=== PATIENT | male | born 1960 | race Hispanic/Latino ===

== ENCOUNTER 2017-02-21 20:48 | Observation (INO) | payer SELFPAY ==
[~2017-02-21] VITALS: Ht 175.3 cm; Wt 96.8 kg
[~2017-02-21 20:48] MED LIST: ASPIRIN EC325 MG PO; CIPRO500 MG PO; FLOXIN OTIC OT; KEFLEX500 M1 PO; LORTAB 5 OR; MEDI; PERCOCET 10/31 COMBO PO; POOR HISTORIAN; WALKER; WHEELCHAIR; ZOFRAN ODT8 MG SL; [UNRECOGNIZED DRUG - OTHER]; [UNRECOGNIZED DRUG - OTHER]
[2017-02-21 21:28] LABS: HEMATOCRIT 46.3 % (39.0-50.0); HEMOGLOBIN 15.6 g/dl (14.0-18.0); IMMATURE GRANULOCYTES 0.1 % (0.0-1.0); MEAN CELL VOLUME 85.6 fL CALC (80.0-100.0); MEAN CORPUSCULAR HGB 28.8 pG CALC (26.0-32.0); MEAN CORPUSCULAR HGB CONC 33.7 g/L CALC (32.0-36.0); NEUT# 3.5 thou/uL (1.82-7.42); RED BLOOD COUNT 5.41 mill/uL (4.70-6.10); RED CELL DISTRI WIDTH 12.8 % (11.5-15.5)
[2017-02-21 21:48] LABS: ACT PARTIAL THROMBO TIME 24.5 SECONDS (20.0-32.5); PROTHROMBIN TIME 10.3 SECONDS (9.0-12.5)
[2017-02-21 22:01] LABS: ALBUMIN 4.3 g/dL (3.2-5.0); ALKALINE PHOSPHATASE 74 u/l (38-126); AMYLASE 45 u/l (30-110); ANION GAP 16 (6-22 (CALC)); BUN 21 mg/dL (9-20); BUN/CREATININE RATIO 13 (12-20 (CALC)); CALCIUM 9.7 mg/dL (8.4-10.2); CARBON DIOXIDE 25 mmol/l (22-30); CHLORIDE 108 mmol/l (95-108); CREATININE 1.6 mg/dL (0.7-1.3); GFR 45 ML/MIN (>=60 (CALC)); GFR FOR AFR.AMER. 55 ML/MIN (>=60 (CALC)); GLUCOSE 89 mg/dL (75-110); LIPASE 335 u/l (23-300); POTASSIUM 4.4 mmol/l (3.5-5.1); SGOT/AST 48 u/l (17-59); SGPT/ALT 58 u/l (21-72); SODIUM 144 mmol/l (137-146); TOTAL PROTEIN 7.6 g/dL (6.3-8.2)
[2017-02-21 22:11] LABS: MYOGLOBIN 47 ng/mL (0 - 121)
[2017-02-22 01:30] VITALS: BP 105/65
[2017-02-22 04:20] VITALS: BP 103/68
[2017-02-22 06:13] LABS: ANION GAP 14 (6-22 (CALC)); BUN 19 mg/dL (9-20); BUN/CREATININE RATIO 16 (12-20 (CALC)); CALCIUM 9.3 mg/dL (8.4-10.2); CALCULATED LDLCHOLESTEROL 105 mg/dL (62-129 (CALC)); CARBON DIOXIDE 24 mmol/l (22-30); CHLORIDE 109 mmol/l (95-108); CREATININE 1.1 mg/dL (0.7-1.3); GFR > 60 ML/MIN (>=60 (CALC)); GFR FOR AFR.AMER. > 60 ML/MIN (>=60 (CALC)); GLUCOSE 80 mg/dL (75-110); HDL CHOLESTEROL 28 mg/dL (>=40); POTASSIUM 4.1 mmol/l (3.5-5.1); SODIUM 142 mmol/l (137-146); TOTAL CHOLESTEROL 148 mg/dl (0-199); TOTAL TRIGLYCERIDES 73 mg/dl (30-149); VLDL CHOLESTROL 15 mg/dl (8-62 (CALC))
[2017-02-22 08:33] VITALS: BP 110/67
[2017-02-22 12:07] VITALS: BP 110/68
[2017-02-22] MEDS ORDERED: CARAFATE1 GM PO (12:52)
[2017-02-22] MEDS ORDERED: PROTONIX40 M2 PO (12:52)
== END 2017-02-22 15:00 | disposition home or self-care (01) | DRG 313 ==
LOC: ENPENDDIS → ED 20:48 → ED-I 23:35 → ED 02-22 00:46 → MS2 02-22 00:47
PROVIDERS: Emergency Medicine; ADMIT Internal Medicine; ATTEND Internal Medicine
DX: R07.89 Other chest pain (principal); N17.9 Acute kidney failure, unspecified; R10.13 Epigastric pain
CPT/HCPCS: G0378

== ENCOUNTER 2018-08-26 06:51 | Observation (INO) | payer SELFPAY ==
[~2018-08-26] VITALS: Ht 175.3 cm; Wt 93.6 kg
[~2018-08-26 06:51] MED LIST changes: +CARAFATE1 GM PO; +PROTONIX40 M2 PO
--- NOTE | 2018-08-26 06:59 | NUR ---
PATIENT TO ROOM VIA WHEELCHAIR AND PHYSICIAN NOTIFIED OF PATIENTSTATUS
[2018-08-26 07:34] LABS: HEMATOCRIT 47.3 % (39.0-50.0); HEMOGLOBIN 16.5 g/dl (14.0-18.0); IMMATURE GRANULOCYTES 0.5 % (0.0-5.0); MEAN CELL VOLUME 84.9 fL CALC (80.0-100.0); MEAN CORPUSCULAR HGB 29.6 pG CALC (26.0-32.0); MEAN CORPUSCULAR HGB CONC 34.9 g/L CALC (32.0-36.0); NEUT# 4.88 thou/uL (1.82-7.42); RED BLOOD COUNT 5.57 mill/uL (4.70-6.10); RED CELL DISTRI WIDTH 12.5 % (11.5-15.5)
[2018-08-26 07:41] LABS: ALBUMIN 4.5 g/dL (3.2-5.0); ALKALINE PHOSPHATASE 82 u/l (38-126); ANION GAP 14 (6-22 (CALC)); BILIRUBIN, TOTAL 1.1 mg/dL (0.0-1.4); BUN 15 mg/dL (9-20); BUN/CREATININE RATIO 13 (12-20 (CALC)); CARBON DIOXIDE 26 mmol/l (22-30); CHLORIDE 105 mmol/l (95-108); CREATININE 1.2 mg/dL (0.7-1.3); ETHYL ALCOHOL 0 mg/dl (0-30); GFR > 60 ML/MIN (>=60 (CALC)); GFR FOR AFR.AMER. > 60 ML/MIN (>=60 (CALC)); LIPASE 245 u/l (23-300); SGOT/AST 24 u/l (17-59); SODIUM 141 mmol/l (137-146); TOTAL PROTEIN 7.8 g/dL (6.3-8.2)
--- NOTE | 2018-08-26 07:50 | NUR ---
PATIENT MEDICATED PER MD ORDER. PATIENT STATES CHEST PAIN 4 TO 5 AFTER MEDICATION ADMINSTRATION
[2018-08-26 08:30] LABS: BARBITURATES NEGATIVE (NEGATIVE); COCAINE NEGATIVE (NEGATIVE); METHADONE NEGATIVE (NEGATIVE); OXCYCODONE NEGATIVE (NEGATIVE); TETRAHYDROCANNABIONOL NEGATIVE (NEGATIVE); TRICYLIC ANTIDEPRESSANTS NEGATIVE (NEGATIVE)
--- NOTE | 2018-08-26 08:30 | NUR ---
PATIENT RESTING AWAITNG LAB RESULTS PATIENT STAtes pain 3 on 0-10 scale
--- NOTE | 2018-08-26 09:14 | NUR ---
PATIENT RESTING AWAITING LAB RESULTS PAIN 3 ON 0-10 SCALE
[2018-08-26] MEDS ORDERED: TORADOL PO (09:32)
[2018-08-26] MEDS ORDERED: PROTONIX40 M2 PO (09:32)
--- NOTE | 2018-08-26 10:01 | NUR ---
PATIENT STATES INCREASED LEFT SIDED CHEST PAIN WHEN ENTERING ROOM TO DISCHARGE PATIENT. MD MADE AWARE AND REPEAT EKG COMPLETED
--- NOTE | 2018-08-26 10:32 | NUR ---
REPORT CALLED TO MED SURG AWAITING ADMISSION ORDERS FOR TRANSPORT
--- NOTE | 2018-08-26 10:50 | NUR ---
PATIENT TRANSPORTED TO [facility]
[2018-08-26 11:00] VITALS: BP 138/83
--- NOTE | 2018-08-26 11:00 | NUR ---
PT ARRIVED TO MS2 VIA STRETCHER @ 1100 ACCOMPANIED BY RN. PT STOOD FOR WEIGHT AND THEN PLACED IN BED. VSS. FAMILY AT BEDSIDE. DISCUSED POC, PT IS DOMINICAN SPEAKING ONLY. DURING ADMISSION ASSESSMENT PT IN POSITION IN BED C/O SEVERE PAIN TO RUQ, NOT CHEST PAIN. NOTIFIED MD OF PAIN. AT BEDSIDE ABLE TO ANSWER MOST QUESTIONS FOR , DUE TO PT IN PAIN HE DOES NOT MAKE EYE CONTACT HIS EYES REMAIN CLOSED, HE KEEPS HIS ANSWERS SHORT AND SOMEWHAT DELAYED IN ANSWERING. AWAITING ORDERS FROM MD. PT MEDICATED WITH PROTONIX, DISCUSSED MEDICATION AND ADMINISTRATION. ADMISSION ASSESSMENT COMPLETED. CALL LIGHT IN REACH,CONTINUE TO MONITOR.
--- NOTE | 2018-08-26 12:20 | NUR ---
ENTERED ROOM WITH MD, FAMILY AT BEDSIDE, ASSESSED BY MD. MD ORDERED TORADOL IV NOW AND REASSES PAIN. PT STATES PAIN 15/10 TO RUQ CALL LIGHT IN REACH,CONTINUE TO MONITOR.
--- NOTE | 2018-08-26 12:51 | NUR ---
PT MEDICATED WITH TORADOL, FAMILY LEFT BEDSIDE AT THIS TIME. PT RESTING IN BED, CALL LIGHT IN REACH,CONTINUE TO MONITOR.
--- NOTE | 2018-08-26 13:20 | NUR ---
PT RESTING IN BED WITH EYES CLOSED,EASILY AROUSED TO VERBAL STIMULI, NO SIGNS OF DISTRESS NOTED, PT STATES PAIN IS DOWN 10/10. RESP EVEN AND UNLABORED. CALL LIGHT IN REACH,CONTINUE TO MONITOR.
--- NOTE | 2018-08-26 14:29 | NUR ---
PNEUMONIA VACCINE, ACCORDING TO CURRENT CDC RECOMMENDATIONS NO PNEUMONIA VACCINE IS NEEDED
--- NOTE | 2018-08-26 15:26 | NUR ---
PT TAKEN DOWN TO US FOR US OF ABD, PT TAKEN DOWN IN WHEELCHAIR, NO SIGNS OF DISTRESS NOTED, RESP EVEN AND UNLABORED. CONTINUE TO MONITOR.
--- NOTE | 2018-08-26 15:46 | NUR ---
PT RETURNED TO BED FROM US, CONTINUE NPO DIET UNTIL RESULTS SEEN BY MD. PT VOICES NO NEEDS OR COMPLAINTS AT THIS TIME. CALL LIGHT IN REACH,CONTINUE TO MONITOR.
[2018-08-26 16:00] VITALS: BP 138/86
--- NOTE | 2018-08-26 17:02 | NUR ---
PT RESTING IN BED, C/O PAIN RETURNING, PT MEDICATED WITH TORADOL, FAMILY AT BEDSIDE. DISCUSSED POC WITH PT, STILL AWAITING RESULTS OF US. CALL LIGHT IN REACH,CONTINUE TO MONITOR.
--- NOTE | 2018-08-26 17:11 | NUR ---
NOTIFIED OF RESULTS OF U/S. ORDERS FOR CONSULT FOR COTTAGE SUPERVISOR SURGEON. PT TO REMAIN NPO.
--- NOTE | 2018-08-26 17:28 | NUR ---
SPOKE WITH DR.FIORUCCI MOSQUEDA STATES HE WILL SEE PT IN AM. CALL LIGHT IN REACH,CONTINUE TO MONITOR.
--- NOTE | 2018-08-26 17:31 | NUR ---
CONSULTATION WAS CALLED TO DR. SMITH OFFICE @[phone]. DR. SWEET CALLED BACK TO VERIFY CONSULTATION AT [id number].
--- NOTE | 2018-08-26 18:00 | NUR ---
DISCUSSED WITH FAMILY AND PT THAT TO SEE PT TOMORROW MORNING. PT TO REMAIN NPO, AND BE MAINTAINED WITH IVF, ALL IN AGREEMENT. CALL LIGHT IN REACH,CONTINUE TO MONITOR.
[2018-08-26 19:15] VITALS: BP 132/71
--- NOTE | 2018-08-26 20:00 | NUR ---
report recieved from offgoing nurse. pt thai speaking family at bedside. pt has no pain at curent moment. iv patent. oc explained to family/patient. pt/family voiced understanding. bed in lowest postion. call light in reah. will monitor.
[2018-08-27 00:13] VITALS: BP 129/79
--- NOTE | 2018-08-27 00:50 | NUR ---
called for order of tylenol due to low grade temp. orders recieved and faxed.
--- NOTE | 2018-08-27 02:23 | NUR ---
prn tylenol not effective. cool wash cloth placed on head to decrease temp. will follow up.
[2018-08-27 03:54] VITALS: BP 119/69
[2018-08-27 05:15] LABS: HEMATOCRIT 42.5 % (39.0-50.0); HEMOGLOBIN 14.7 g/dl (14.0-18.0); IMMATURE GRANULOCYTES 0.2 % (0.0-5.0); MEAN CELL VOLUME 84.2 fL CALC (80.0-100.0); MEAN CORPUSCULAR HGB 29.1 pG CALC (26.0-32.0); MEAN CORPUSCULAR HGB CONC 34.6 g/L CALC (32.0-36.0); NEUT# 5.89 thou/uL (1.82-7.42); RED BLOOD COUNT 5.05 mill/uL (4.70-6.10); RED CELL DISTRI WIDTH 12.8 % (11.5-15.5)
[2018-08-27 05:29] LABS: ALKALINE PHOSPHATASE 73 u/l (38-126); BILIRUBIN, TOTAL 1.7 mg/dL (0.0-1.4); BUN 13 mg/dL (9-20); BUN/CREATININE RATIO 12 (12-20 (CALC)); CARBON DIOXIDE 27 mmol/l (22-30); CHLORIDE 105 mmol/l (95-108); CREATININE 1.1 mg/dL (0.7-1.3); GFR > 60 ML/MIN (>=60 (CALC)); GFR FOR AFR.AMER. > 60 ML/MIN (>=60 (CALC)); MAGNESIUM 1.8 mg/dL (1.6-2.3); POTASSIUM 3.6 mmol/l (3.5-5.1); SGOT/AST 42 u/l (17-59)
[2018-08-27 05:32] LABS: ANION GAP 10 (6-22 (CALC)); SODIUM 138 mmol/l (137-146)
[2018-08-27 05:38] LABS: ALBUMIN 3.4 g/dL (3.2-5.0); TOTAL PROTEIN 6.2 g/dL (6.3-8.2)
[2018-08-27 07:30] VITALS: BP 125/78
--- NOTE | 2018-08-27 07:30 | NUR ---
ASSESSMENT WITH PT. ALERT,AND RESTING. NO DISTRESS NOTED. IV SITE IS FREE FROM REDNESS OR EDEMA. HR IS REG,PULSES ARE STRONG X4, ABD IS SOFT WITH ACTIVE BS.FAMILY IN THE ROOM. TELE MONITOR IN PLACE. CALL WOODY WITHIN REACH. CONTINUE TO OSBERVE AND MONITOR.
--- NOTE | 2018-08-27 09:30 | NUR ---
PT IS NPO STATUS HAVING TO WAIT ON MEDICATION TO BE GIVEN.
--- NOTE | 2018-08-27 09:35 | NUR ---
IN TO SEE PT.
--- NOTE | 2018-08-27 09:38 | NUR ---
PLANS TO HAVE SURGERY IN THE AM., PER
[2018-08-27 09:53] LABS: CHOLESTEROL HDL RATIO 4.2 (<4.4 (CALC)); MAGNESIUM 1.9 mg/dL (1.6-2.3)
--- NOTE | 2018-08-27 11:08 | NUR ---
PT KRUNAL CONSENT FOR SURGERY IN THE AM, GAVE LITERATURE IN [place]IN[place] FOR THE PT AND FAMILY RE: LAPAROSCOPIC CHOLEYCYSTECTOMY
--- NOTE | 2018-08-27 12:00 | NUR ---
PT HAS BEEN VISITING WITH FAMILY. NO DISTRESS NOTED. IV SITE IS FREE FROM REDNESS OR EDEMA. PT ABLE TO SHOWER. CONTINUE TO OSBERVE AND MONITOR.
[2018-08-27 13:34] VITALS: BP 128/77
--- NOTE | 2018-08-27 14:00 | NUR ---
WILLIAMS FROM ANESTHESIA IN TO SEE PT. HANH FROM XRAY TO TRANSLATE RE: ANESTHESIA IN THE AM. PT SIGNED CONSENT AND VERBALIZED UNDERSTANDING
[2018-08-27 15:55] VITALS: BP 112/67
--- NOTE | 2018-08-27 16:00 | NUR ---
PT IS RELAXING IN BED WITH NO DISTRESS NOTED.,IV SITE IS FREE FROM REDNESS OR EDEMA. FAMILY IN THE ROOM.
--- NOTE | 2018-08-27 19:17 | NUR ---
REPORT RECEIVED FROM DAY NURSE. PT IS IN BED TALKING ON PHONE. NO S/S OF DISTRESS NOTED. CALL LIGHT AT BEDSIDE.
[2018-08-27 19:19] VITALS: BP 121/67
--- NOTE | 2018-08-27 21:29 | NUR ---
PT IV FLUIDS REPLENISHED AT THIS TIME AND PT ASSESSED. PT REPORTS SOME PAIN 5/10, WILL MEDICATED SOON ORDERS ALLOW. DENIES ANY OTHER NEEDS AT THIS TIME. LUNG SOUNDS ARE CLEAR, ABD TENDER TO UPPER RIGHT QUAD, BOWEL SOUNDS ARE HYPOACTIVE. SKIN INTACT. FAMILY AT BEDSIDE. CALL LIGHT AT SIDE AND PT ENCOURAGED TO CALL IF ANY OTHER NEEDS ARISE.
--- NOTE | 2018-08-27 22:39 | NUR ---
PT MEDICATED FOR PAIN. FAMILY AT BEDSIDE W/LIGHTS AND TV ON. DENIES ANY OTHER NEEDS AT THIS TIME. CALL LIGHT AT BEDSIDE AND PT ENCOURAGED TO CALL IF ANY NEEDS ARISE.
[2018-08-28] VITALS (8 sets, daily range): BP systolic 105–139; BP diastolic 58–89
--- NOTE | 2018-08-28 | NUR ---
PT IS IN LOW FOWLERS POSITION WATCHING TV W/FAMILY AWAKE AT BEDSIDE. ROOM IS DARK, PT APPEARS RELAXED REPORTING PAIN IMPROVED FROM MEDICATIONS/NO NUMBER GIVEN. PT MEDICATED W/IV ANTIBIOTIC THERAPY AND DENIES ANY OTHER NEEDS AT THIS TIME. CALL LIGHT IS AT BEDSIDE.
[2018-08-28 05:09] LABS: HEMATOCRIT 40.7 % (39.0-50.0); HEMOGLOBIN 14.1 g/dl (14.0-18.0); MEAN CELL VOLUME 85.5 fL CALC (80.0-100.0); MEAN CORPUSCULAR HGB 29.6 pG CALC (26.0-32.0); MEAN CORPUSCULAR HGB CONC 34.6 g/L CALC (32.0-36.0); RED BLOOD COUNT 4.76 mill/uL (4.70-6.10); RED CELL DISTRI WIDTH 12.8 % (11.5-15.5)
[2018-08-28 05:20] LABS: ALBUMIN 2.9 g/dL (3.2-5.0); BILIRUBIN, TOTAL 1.5 mg/dL (0.0-1.4); TOTAL PROTEIN 5.6 g/dL (6.3-8.2)
--- NOTE | 2018-08-28 05:52 | NUR ---
PT SLEEPING SOUNDLY, IV ANTIBIOTIC ADMINISTERED, PT DENIES ANY OTHER NEEDS AT THIS TIME. FAMILY AT BEDSIDE SLEEPING X1 AND ONE IN RESTROOM. CALL LIGHT IS AT BEDSIDE.
--- NOTE | 2018-08-28 07:15 | NUR ---
RECIEVED REPORT FROM VINEET SOL. DURING REPORT PT TAKEN DOWN TO OR VIA [facility] WITH LENA SOL. PT IN STABLE CONDITION.
--- NOTE | 2018-08-28 09:47 | NUR ---
PT RETURNED FROM OR VIA STRETCHER WITH LENA RN IN STABLE CONDITION. PT ABLE TO TRANSFER SELF FROM STRETCHER TO STRETCHER. PT DROWSY BUT ABLE TO ANSWER QUESTIONS APPROPRIATELY. PT IS HAVING NO PAIN AT THIS TIME. PT HAS 4 SMALL INCISIONS 3 TO THE UPPER RIGHT QUADRANT AND 1 UNDER THE BELLY BUTTON. INSICIONS ARE UNCOVERED SEALED WITH DERMABOND. AREAS CLEAN DRY AND INTACT. ASSESMENT COMPLETED AT THIS TIME(SEE INTERVENTION). LUNGS CLEAR, HEART SOUNDS NORMAL, BOWEL SOUNDS ACTIVE. NO EDEMA NOTED. #20 LAC INFUSING WELL. NO REDNESS OR EDEMA NOTED. PT VS STABLE AND MONITORED PER PROTOCOL. CALL WOODY IN REACH. AWAITING TRAANSFER.
--- NOTE | 2018-08-28 11:40 | NUR ---
AND WILLIAM VELARDE,ANRP AT BEDSIDE DISCUSSING POC INCLUDING TRANSFER TO [facility].
--- NOTE | 2018-08-28 11:50 | NUR ---
[facility] HER TO PIC UP PT AT THIS TIME.
--- NOTE | 2018-08-28 12:12 | NUR ---
PT LEAVING VIA [facility] [place] VIA STRETCHER IN STABLE CONDITION.
--- NOTE | 2018-08-28 12:40 | NUR ---
REPORT CALLED TO ASAEL AT [facility].
== END 2018-08-28 12:12 | disposition short-term general hospital (02) | DRG 419 ==
LOC: ED 06:51 → ED-I 07:11 → ED 07:11 → ED-I 09:51 → ED 10:17 → MS2 10:18
PROVIDERS: Emergency Medicine; Nurse Practitioner Family; Surgery; ADMIT Internal Medicine Nephrology; ATTEND Internal Medicine Nephrology
PROC: 0FT44ZZ Resection of Gallbladder, Percutaneous Endoscopic Approach (ICD-10-PCS; principal; 2018-08-28)
PROC: BF001ZZ Plain Radiography of Bile Ducts using Low Osmolar Contrast (ICD-10-PCS; 2018-08-28)
PROC: 3E02340 Introduction of Influenza Vaccine into Muscle, Percutaneous Approach (ICD-10-PCS; 2018-08-28)
DX: K80.42 Calculus of bile duct with acute cholecystitis without obstruction (principal); Z23 Encounter for immunization
CPT/HCPCS: G0378; J2270; J2710; Q9967

== ENCOUNTER 2020-04-11 17:56 | Inpatient (IN) | payer OTHER ==
[~2020-04-11] VITALS: Ht 175.3 cm; Wt 83.1 kg
[~2020-04-11 17:56] MED LIST changes: +TORADOL PO
--- NOTE | 2020-04-11 19:06 | NUR ---
REPORT GIVEN TO SWETA KNOX
[2020-04-11 19:29] LABS: IMMATURE GRANULOCYTES 0.4 % (0.0-5.0); MEAN CELL VOLUME 84.3 fL CALC (80.0-100.0); MEAN CORPUSCULAR HGB CONC 34.4 g/dL CAL (32.0-36.0); NEUT# 3.11 thou/uL (1.82-7.42); RED BLOOD COUNT 5.68 mill/uL (4.70-6.10); RED CELL DISTRI WIDTH 13.1 % (11.5-15.5)
[2020-04-11 19:37] LABS: HEMATOCRIT 47.9 % (39.0-50.0); HEMOGLOBIN 16.5 g/dl (14.0-18.0)
[2020-04-11 19:41] LABS: AMYLASE 55 u/l (30-110); ANION GAP 12 (6-22 (CALC)); BILIRUBIN, TOTAL 1.9 mg/dL (0.0-1.4); BUN 17 mg/dL (9-20); BUN/CREATININE RATIO 17 (12-20 (CALC)); CARBON DIOXIDE 25 mmol/l (22-30); CHLORIDE 101 mmol/l (95-108); GFR > 60 ML/MIN (>=60 (CALC)); GFR FOR AFR.AMER. > 60 ML/MIN (>=60 (CALC)); LIPASE 358 u/l (23-300); POTASSIUM 3.7 mmol/l (3.5-5.1); SODIUM 133 mmol/l (137-146)
[2020-04-11 19:47] LABS: ALBUMIN 4.1 g/dL (3.2-5.0); ALKALINE PHOSPHATASE 172 u/l (38-126); SGOT/AST 67 u/l (17-59)
[2020-04-11 19:50] LABS: MYOGLOBIN 110 ng/mL (0 - 121)
--- NOTE | 2020-04-11 20:00 | NUR ---
PT RESTING. NAD. AWAITING RESULTS. VSS.
[2020-04-11 21:03] LABS: C-REACTIVE PROTEIN 7.7 mg/dL (0-0.9)
--- NOTE | 2020-04-11 21:05 | NUR ---
REPEAT LACTIC DRAWN. PT RESTING. REGISTRATION COLOR BUFFER WOODY TO DISCUSS REGISTRATION.
[2020-04-11 21:07] LABS: ACT PARTIAL THROMBO TIME 27.9 SECONDS (20.0-32.5); PROTHROMBIN TIME 9.5 SECONDS (9.0-12.5)
--- NOTE | 2020-04-11 21:48 | NUR ---
VERIFIED CONCENTRATION WITH CARDIAL FOR AXITHROMAX 500 MG IN 250 ML.
--- NOTE | 2020-04-11 22:52 | NUR ---
REPORT TO ALAYNA
--- NOTE | 2020-04-11 22:56 | NUR ---
PT TO FLOOR WITH POCKET MONITOR. MASKED PER SOHAIL.
--- NOTE | 2020-04-11 23:08 | NUR ---
PT ARRIVES TO UNIT @ 2308 VIA STRETCHER, ACCOMPANIED BY Lizy FARRELL RN. ADMITTED TO ROOM 290 W/ AIRBORNE PLUS CONTACT PRECAUTIONS PER COVID-19 ISOLATION REQUIRMENTS.
[2020-04-11 23:15] VITALS: BP 139/74
[2020-04-11 23:40] LABS: URINE BLOOD DIPSTICK TRACE-INTACT (NEGATIVE); URINE COLOR YELLOW; URINE GLUCOSE - DIPSTICK NEGATIVE (NEGATIVE); URINE KETONE 40 mg/dL (NEGATIVE); URINE LEUK ESTERASE NEGATIVE (NEGATIVE); URINE NITRITE - DIPSTICK NEGATIVE (Negative); URINE SPECIFIC GRAVITY >=1.030
[2020-04-11 23:43] LABS: URINE BILIRUBIN - DIPSTICK SMALL (NEGATIVE); URINE PROTEIN - DIPSTICK Trace mg/dL (NEG-TRACE)
--- NOTE | 2020-04-12 00:45 | NUR ---
UPON ENTERING ROOM PT FOUND TO BE RESTING IN BED. APPEARS COMFORTABLE AND IN NO APPARENT DISTRESS. RESPIRATIONS ARE REGULAR AND UNLABORED. PHYSICAL ASSESMENT COMPLETE AT THIS TIME. NS @ 50ML/H IV INITIATED, SEE E-MAR. PLAN OF CARE REVIEWED, PT DENIES QUESTIONS, VERBALIZES UNDERSTANDING. DENIES NEEDS AT THIS TIME. ITEMS WITHIN REACH, BED LOCKED IN LOW POSITION W/ BEDRAILS UP X2. CALL WOODY WITHIN REACH, AGREES TO CALL PRN.
--- NOTE | 2020-04-12 02:01 | NUR ---
PT APPEARS TO BE SLEEPING COMFORTABLY, NO APPARENT DISTRESS, RESPIRATIONS REGULAR AND UNLABORED. CALL WOODY REMAINS WITHIN REACH.
[2020-04-12 04:50] VITALS: BP 119/75
[2020-04-12 05:07] LABS: HEMATOCRIT 44.4 % (39.0-50.0); HEMOGLOBIN 14.8 g/dl (14.0-18.0); IMMATURE GRANULOCYTES 0.6 % (0.0-5.0); MEAN CELL VOLUME 85.2 fL CALC (80.0-100.0); MEAN CORPUSCULAR HGB 28.4 pG CALC (26.0-32.0); MEAN CORPUSCULAR HGB CONC 33.3 g/dL CAL (32.0-36.0); NEUT# 2.21 thou/uL (1.82-7.42); RED BLOOD COUNT 5.21 mill/uL (4.70-6.10); RED CELL DISTRI WIDTH 13.2 % (11.5-15.5)
[2020-04-12 05:36] LABS: ANION GAP 10 (6-22 (CALC)); BUN 17 mg/dL (9-20); BUN/CREATININE RATIO 18 (12-20 (CALC)); C-REACTIVE PROTEIN 7.6 mg/dL (0-0.9); CARBON DIOXIDE 27 mmol/l (22-30); CHLORIDE 102 mmol/l (95-108); CREATININE 0.9 mg/dL (0.7-1.3); GFR > 60 ML/MIN (>=60 (CALC)); GFR FOR AFR.AMER. > 60 ML/MIN (>=60 (CALC)); POTASSIUM 3.5 mmol/l (3.5-5.1); SODIUM 136 mmol/l (137-146)
[2020-04-12 08:00] VITALS: BP 100/62
[2020-04-12 12:58] VITALS: BP 116/71
--- NOTE | 2020-04-12 14:28 | NUR ---
PT WITH SENSE OF SHORTNESS OF BREATH, OXYGEN UPPED TO 3 LPM.
[2020-04-12 16:26] VITALS: BP 114/67
--- NOTE | 2020-04-12 17:26 | NUR ---
PT MAINTAINS ADEQUATE OXYGEN SATURATION ON 3 LPM, SEEN AT REST IN THE BED, NO EVIDENCE OF DISTRESS.
[2020-04-12 19:35] VITALS: BP 142/86
--- NOTE | 2020-04-12 21:14 | NUR ---
RECHECK OF PT TEMP, 99.3 AND PT REPORTS FEELING HOT. ROOM IS WARM. PT HAS COVERS ALL OFF. ICEPACKS REMOVED FOR PT COMFORT. DENIES ANY OTHER NEEDS AT THIS TIME.
--- NOTE | 2020-04-12 22:18 | NUR ---
PT C/O COUGH, ORDER RECEIVED FROM PHYSICIAN, WILL MEDICATE PT WHEN ORDER BECOMES AVAILABLE.
[2020-04-12 23:49] VITALS: BP 127/73
--- NOTE | 2020-04-13 00:06 | NUR ---
PT MEDICATED FOR COUGH, DENIES ANY OTHER NEEDS. NO S/O DISTRESS AT THIS TIME. LIGHTS AND TV ARE ON.
--- NOTE | 2020-04-13 03:48 | NUR ---
BLOOD DRAWN FOR MORNING LABS. PT DENIED ANY NEEDS. AGRONOMY SPECIALIST IS IN TO OBTAIN V/S.
[2020-04-13 03:53] VITALS: BP 136/80
[2020-04-13 05:26] LABS: HEMATOCRIT 42.1 % (39.0-50.0); HEMOGLOBIN 14.2 g/dl (14.0-18.0); IMMATURE GRANULOCYTES 0.5 % (0.0-5.0); MEAN CELL VOLUME 84.4 fL CALC (80.0-100.0); MEAN CORPUSCULAR HGB 28.5 pG CALC (26.0-32.0); MEAN CORPUSCULAR HGB CONC 33.7 g/dL CAL (32.0-36.0); NEUT# 2.96 thou/uL (1.82-7.42); RED BLOOD COUNT 4.99 mill/uL (4.70-6.10)
[2020-04-13 05:49] LABS: ALBUMIN 3.3 g/dL (3.2-5.0); ALKALINE PHOSPHATASE 154 u/l (38-126); ANION GAP 8 (6-22 (CALC)); BILIRUBIN, TOTAL 1.2 mg/dL (0.0-1.4); BUN 19 mg/dL (9-20); BUN/CREATININE RATIO 21 (12-20 (CALC)); C-REACTIVE PROTEIN 6.1 mg/dL (0-0.9); CARBON DIOXIDE 25 mmol/l (22-30); CHLORIDE 107 mmol/l (95-108); CREATININE 0.9 mg/dL (0.7-1.3); GFR > 60 ML/MIN (>=60 (CALC)); GFR FOR AFR.AMER. > 60 ML/MIN (>=60 (CALC)); POTASSIUM 4.1 mmol/l (3.5-5.1); SGOT/AST 71 u/l (17-59); SODIUM 137 mmol/l (137-146); TOTAL PROTEIN 6.5 g/dL (6.3-8.2)
[2020-04-13 08:13] VITALS: BP 135/79
--- NOTE | 2020-04-13 09:11 | NUR ---
REPORT TAKEN FROM VINEET. PT V/S ASSESSED,PT ALERT AND ORIENTED; OXYGEN ON AT 2 L, STAT 97% PT REQUESTING COUGH MEDICINE; DENIES ANY FURTHER NEEDS AT THIS TIME. PT IS EATING BREAKFAST;PT POC CARE DISCUSSED. NO DISTRESS NOTED.
[2020-04-13 11:15] VITALS: BP 129/79
--- NOTE | 2020-04-13 12:04 | NUR ---
PT FOUND TO BE RESTING IN BED. PT IN NO APPARENT DISTRESS. RESPIRATIONS ARE REGULAR AND UNLABORED. CALL LIGHT WITH IN REACH.
[2020-04-13 15:35] VITALS: BP 140/74
--- NOTE | 2020-04-13 16:29 | NUR ---
PT RESTING IN BED; NO DISTRESSS NOTED. ENCOURAGED TO CALL FOR ANY NEEDS. CALL LIGHT WITHIN REACH.
--- NOTE | 2020-04-13 17:52 | NUR ---
PT EATING SUPPER AT THE SIDE OF THE BED. SEEN BY DR HAYES. PER DR HAYES IV FLUIDS DISCONTINUED. IV FLUSHED AND SITE IS INTACT AND APPEARS HEALTHY.
[2020-04-13 20:20] VITALS: BP 146/84
--- NOTE | 2020-04-13 21:50 | NUR ---
PT SLEEPING, NO S/O DISTRESS. PT AWOKE TO MY ENTERING THE ROOM. CALL LIGHT AT BEDSIDE.
--- NOTE | 2020-04-13 23:12 | NUR ---
PT MEDICATED W/IV ANTIBIOTIC THERAPY AND ROBITUSSIN FOR COUGH. NO S/O DISTRESS, ONLY COUGH AT THIS TIME. C/O SOB ON AMBULATION/EXERTION. ENCOURAGED PT TO CALL NEEDS ARISE AND REORIENTED PT TO CALL LIGHT/
[2020-04-13 23:30] VITALS: BP 148/89
[2020-04-14 03:50] VITALS: BP 153/67
[2020-04-14 03:55] VITALS: BP 148/88
--- NOTE | 2020-04-14 04:55 | NUR ---
BLOOD DRAWN FOR MORNING LABS. PT TOLERATED WELL AND DENIED ANY OTHER NEEDS. CALL LIGHT IN PLACE.
[2020-04-14 06:05] LABS: HEMATOCRIT 41.7 % (39.0-50.0); HEMOGLOBIN 13.6 g/dl (14.0-18.0); IMMATURE GRANULOCYTES 0.5 % (0.0-5.0); MEAN CELL VOLUME 85.5 fL CALC (80.0-100.0); MEAN CORPUSCULAR HGB 27.9 pG CALC (26.0-32.0); MEAN CORPUSCULAR HGB CONC 32.6 g/dL CAL (32.0-36.0); NEUT# 4.81 thou/uL (1.82-7.42); RED BLOOD COUNT 4.88 mill/uL (4.70-6.10); RED CELL DISTRI WIDTH 12.8 % (11.5-15.5)
[2020-04-14 06:26] LABS: ALBUMIN 3.2 g/dL (3.2-5.0); ALKALINE PHOSPHATASE 131 u/l (38-126); ANION GAP 8 (6-22 (CALC)); BUN 17 mg/dL (9-20); BUN/CREATININE RATIO 19 (12-20 (CALC)); C-REACTIVE PROTEIN 3.3 mg/dL (0-0.9); CARBON DIOXIDE 26 mmol/l (22-30); CHLORIDE 109 mmol/l (95-108); CREATININE 0.9 mg/dL (0.7-1.3); GFR > 60 ML/MIN (>=60 (CALC)); GFR FOR AFR.AMER. > 60 ML/MIN (>=60 (CALC)); POTASSIUM 4.1 mmol/l (3.5-5.1); SGOT/AST 56 u/l (17-59); SODIUM 139 mmol/l (137-146); TOTAL PROTEIN 5.7 g/dL (6.3-8.2)
[2020-04-14 06:40] LABS: BILIRUBIN, TOTAL 0.7 mg/dL (0.0-1.4)
[2020-04-14 09:24] VITALS: BP 122/72
--- NOTE | 2020-04-14 09:24 | NUR ---
RECIEVED REPORT FROM SWETA MANLEY. PT RESTING IN LOW FOWLERS UPON ENTERING ROOM. PT IS A/OX 3 AND [place] SPEAKING ONLY. ASSESSMENT AND VITALS COMPLETED AT THIS TIME. BP 122/72, HR 64, O2 95% ON 3L NC. RESPIRATIONS ARE EVEN AND UNLABORED WITH NO SIGN OF DISTRESS. LUNG SOUNDS ARE DIMINISHED. HEART RHYTHM IS NORMAL WITH TELE IN PLACE.BOWEL SOUNDS ARE ACTIVE IN ALL QUADRANTS, LAST REPORTED BM 04/12/20. RADIAL AND PEDAL PULSES ARE STRONG WITH NORMAL CAPILLARY REFILL. SKIN IS COOL AND DRY WITH NO BREAKDOWN OR EDEMA. IV FLUSHED AT THIS TIME, SITE APPEARS HEALTHY AND PATENT.150ML OF STEPHANIE CLOUDY URINE EMPTIED FROM URINAL. PT DENIES ANY PAIN OR DISCOMFORTS AT THIS TIME. ALL SAFTEY AND ISOLATION PRECAUTIONS IN PLACE WITH CALL LIGHT IN REACH. WILL CONTINUE TO MONITOR.
[2020-04-14 11:00] VITALS: BP 117/71
--- NOTE | 2020-04-14 11:28 | NUR ---
PT RESTING IN SEMI FOWLERS POSITION WATCHING TV.RESPIRATIONS ARE EVEN AND UNLABORED.IV FLUIDS COMPLETED, FLUIDS D/C, PT DISCONECTED FROM IV. PT DENIES ANY PAIN OR DISCOMFORTS AT THIS TIME. ALL SAFTEY PRECAUTIONS IN PLACE WITH CALL LIGHT IN REACH.
--- NOTE | 2020-04-14 11:45 | NUR ---
DR. HAYES AT BEDSIDE DISCUSSING POC
--- NOTE | 2020-04-14 15:40 | NUR ---
PT GETTING READY TO SHOWER AT THIS TIME. RESPIRATIONS ARE EVEN AND UNLABORED WITH NO SIGNS OF DISTRESS. PT DENIES ANY PAIN OR DISCOMFORTS AT THIS TIME. ALL SAFETY PRECAUTIONS IN PLACE. ENCOURAGED PT TO CALL FOR ASSISTANCE IF NEEDED. WILL CONTINUE TO MONITOR
[2020-04-14 16:00] VITALS: BP 131/79
[2020-04-14 19:42] VITALS: BP 134/79
--- NOTE | 2020-04-14 21:09 | NUR ---
PT RESTING IN BED, ALERT AND ORIETNED. RESPIRATIONS EVEN AND UNLABORED ON O2 @ 3L VIA NC. LUNGS SOUND DIMINISHED. PEDAL PULSES STRONG. PT DENIES ANY PAIN OR DISCOMFORT AT THIS TIME. SAFETY PRECAUTION IN PLACE. WILL CONTINUE TO MONITOR.
--- NOTE | 2020-04-15 00:15 | NUR ---
PT RESTING IN BED, NO S/S OF DISTRESS AT THIS TIME. SAFETY PRECAUTIONS IN PLACE. WILL CONTINUE TO MONITOR.
--- NOTE | 2020-04-15 04:41 | NUR ---
PT RESTING IN BED, NO S/S OF DISTRESS AT THIS TIME. SAFETY PRECAUTIONS IN PLACE. WILL CONTINUE TO MONITOR.
[2020-04-15 05:00] VITALS: BP 131/84
--- NOTE | 2020-04-15 08:39 | NUR ---
RECIEVED REPORT FROM SWETA ADAN. PT RESTING IN LOW FOWLERS POSITION WATCHING TV. INTRODUCED SELF TO PT AND DISCUSSED POC. PT IS A/O X3 AND AMBULATORY. ASSESSMENT AND VITALS COMPLETED. BP 119/72, HR 60, O2 96% ON 3L NC. RESPIRATIONS ARE EVEN AND UNALBORED WITH NO SIGNS OF DISTRESS. LUNG SOUNDS ARE DIMINISHED, PT DENIES ANY SOB.PT PRESENTS WITH NO PRODUCTIVE COUGH, ROBITSSIN TO BE ADMINISTERED. HEART RHYTHM IS NORMAL, TELE IN PLACE. BOWEL SOUNDS ARE ACTIVE IN ALL QUADRANTS WITH NO TENDERNES. LAST REPORTED BM 04/14/20. #18G LAC FLUSHED, SITE APPEARS HEALTHY AND PATENT. RADIAL AND PEDAL PULSES ARE STRONG WITH NORMAL CAPILLARY REFILL. SKIN IS WARM AND DRY WITH NO EDEMA OR BREAKDOWN. 100 ML OF CLOUDY STEPHANIE URINE EMPTIED FROM URINAL. PT DENIES OF ANY PAIN OR DISCOMFORTS AT THIS TIME.ALL SAFTEY AND ISOLATION PRECAUTIONS IN PLACE WITH CALL LIGHT IN REACH. WILL CONTINUE TO MONITOR
[2020-04-15 09:08] VITALS: BP 119/72
[2020-04-15 10:45] VITALS: BP 121/75
--- NOTE | 2020-04-15 12:10 | NUR ---
QUITA APARICIO AT BEDSIDE DISCUSSING POC WITH PT .
--- NOTE | 2020-04-15 12:30 | NUR ---
PT RESTING IN LOW FOWLERS POSITION WATCHING TV. RESPIRATIONS ARE EVEN AND UNLABORED WITH NO SIGNS OF DISTRESS. PT DENIES OF ANY PAIN OR DISCOMFORTS AT THIS TIME. ALL SAFETY AND ISOLATION PRECAUTIONS REMAIN IN PLACE. WILL CONTINUE TO MONITOR
--- NOTE | 2020-04-15 13:40 | NUR ---
ORDERS TO TITRATE PT FROM OXYGEN. PT O2 SAT 96% ON 3L NC. OXYGEN LOWERED TO 2L NC, PT SATING AT 94%. INFORMED PT THAT IF HE EXPRIENCED ANY SOB TO NOTIFY WRITTER. PT VERBALIZED UNDERSTANDING. SWETA SUTTON ASSISTED WITH TRANSLATION OVER PHONE IN PT ROOM. RESPIRATIONS ARE EVEN AND UNLABORED WITH NO SIGNS OF DISTRESS.ALL SAFETY AND ISOLATION PRECAUTIONS ARE IN PLACE WITH CALL LIGHT IN REACH. WILL COTINUE TO MONITOR
[2020-04-15 15:05] VITALS: BP 125/77
--- NOTE | 2020-04-15 17:48 | NUR ---
NEW #20G STARTED IN LEFT HAND, SITE APPEARS HEALTHY AND PATENT. PT TOLERATED WELL. RESPIRATIONS ARE EVEN AND UNLABORED WITH NO SIGNS OF DISTRESS. PT DENIES OF ANY PAINS OR DISCOMFORTS AT THIS TIME.ALL SAFETY PRECAUTIONS IN PLACE WITH CALL LIGHT IN REACH. WILL CONTINUE TO MONITOR.
[2020-04-15 19:00] VITALS: BP 138/85
--- NOTE | 2020-04-15 21:01 | NUR ---
PT RESTING IN BED, ALERT AND ORIENTED. RESPIRATIONS EVEN AND UNLABORED ON O2 @ 2L VIA NC. LUNGS SOUND CLEAR/DIMINISHED. PEDAL PULSES WERE STRONG. PT DENIES ANY PAIN OR DISCOMFORT AT THIS TIME. #20 LH PATENT AND APPEARS HEALTHY. TELE IN PLACE. 100CC CLEAR/STEPHANIE URINE, EMPTIED FROM URINAL. CALL WOODY WITH IN REACH. WILL CONTINUE TO MONITOR.
[2020-04-15 23:36] VITALS: BP 147/86
--- NOTE | 2020-04-16 00:53 | NUR ---
PT RESTING IN BED. RESPIRATIONS EVEN AND UNLABOED ON O2 @ 2L VIA NC. TELE IN PLACE. CALL WOODY WITHIN REACH. WILL CONTINUE TO MONITOR.
[2020-04-16 04:00] VITALS: BP 114/80
--- NOTE | 2020-04-16 04:00 | NUR ---
PT RESTING IN BED. RESPIRATIONS EVEN AND UNLABROED ON RA. NO S/S OF DISTRESS AT THIS TIME. LABS DRAWN AND VS OBTAINED. SAFETY PRECAUTIONS IN PLACE. WILL CONTINUE TO MONITOR.
[2020-04-16 06:24] LABS: HEMOGLOBIN 14.6 g/dl (14.0-18.0); MEAN CELL VOLUME 86.3 fL CALC (80.0-100.0); MEAN CORPUSCULAR HGB 28.6 pG CALC (26.0-32.0); MEAN CORPUSCULAR HGB CONC 33.2 g/dL CAL (32.0-36.0); NEUT# 4.17 thou/uL (1.82-7.42); RED BLOOD COUNT 5.1 mill/uL (4.70-6.10); RED CELL DISTRI WIDTH 12.8 % (11.5-15.5)
[2020-04-16 06:43] LABS: ALBUMIN 3.4 g/dL (3.2-5.0); ALKALINE PHOSPHATASE 142 u/l (38-126); ANION GAP 10 (6-22 (CALC)); BILIRUBIN, TOTAL 0.7 mg/dL (0.0-1.4); BUN 21 mg/dL (9-20); BUN/CREATININE RATIO 22 (12-20 (CALC)); C-REACTIVE PROTEIN 2.6 mg/dL (0-0.9); CARBON DIOXIDE 27 mmol/l (22-30); CHLORIDE 104 mmol/l (95-108); GFR > 60 ML/MIN (>=60 (CALC)); GFR FOR AFR.AMER. > 60 ML/MIN (>=60 (CALC)); POTASSIUM 4.5 mmol/l (3.5-5.1); SGOT/AST 51 u/l (17-59); SODIUM 136 mmol/l (137-146)
--- NOTE | 2020-04-16 07:00 | NUR ---
SHIFT CHANGE REPORT, PT AWAKE ALERT AND ORIENTED SITTING UP AT BEDSIDE, NO C/O DISCOMFORT, O2 @ 2L VIA NC IN PLACE, TELE MONITOR IN PLACE, CALL WOODY IN REACH.
[2020-04-16 08:39] VITALS: BP 118/76
[2020-04-16 11:05] VITALS: BP 119/68
--- NOTE | 2020-04-16 12:00 | NUR ---
MEDICAL TEAM ROUNDED AND DISCUSSED PLAN OF CARE, PT INDICATED UNDERSTANDING.
[2020-04-16 15:16] VITALS: BP 119/81
--- NOTE | 2020-04-16 16:00 | NUR ---
MD ORDERED TO REMOVE O2 AND AMBULATE PT, PT INFORMED OF PROCEDURE, RESTING O2 SAT = 94%, ON AMBULATINO IN HALLWAYS SATS SUSTAINED @ 97-98% ON ROOM AIR, TOLERATED WELL.
--- NOTE | 2020-04-16 16:00 | NUR ---
RESTING IN BED, NO NEW COMPLAIN.
[2020-04-16 19:47] VITALS: BP 131/83
--- NOTE | 2020-04-16 20:28 | NUR ---
PT RESTING IN BED, ALERT AND ORIENTED. RESPIRATIONS EVEN AND UNLABORED ON RA. LUNGS SOUND CLEAR/DIMINISHED. PEDAL PULSES WERE STRONG. PT DENIES ANY PAIN OR DISCOMFORT AT THIS TIME. #20 LH PATENT AND APPEARS HEALTHY. TELE IN PLACE. 150CC CLEAR/STEPHANIE URINE, EMPTIED FROM URINAL. CALL WOODY WITH IN REACH. WILL CONTINUE TO MONITOR.
--- NOTE | 2020-04-17 00:05 | NUR ---
PT RESTING IN BED. RESPIRATIONS EVEN AND UNLABORED ON RA. NO S/S OF DISTRESS AT THIS TIME. SAFETY PRECAUTIONS IN PLACE. WILL CONTINUE TO MONITOR.
--- NOTE | 2020-04-17 04:20 | NUR ---
PT RESTING IN BED. NO S/S OF DISTRESS AT THIS TIME.
--- NOTE | 2020-04-17 07:20 | NUR ---
REPORT RECEIVED FROM ANTIONETTERN;PT RESTING IN SEMI FOWLERS POSITION;RESPIRATIONS EVEN AND UNLABORED ON RA;NO S/S OF DISTRESS NOTED;TELE MONITORING IN PLACE;ALL SAFETY PECAUTIONS NOTED WITH BED IN THE LOWEST POSITION AND CALL LIGHT IN REACH;WILL CONTINUE TO MONITOR
--- NOTE | 2020-04-17 09:00 | NUR ---
AT BEDSIDE DISCUSSING POC INCLUDING PLANS TO D/C HOME.
--- NOTE | 2020-04-17 09:20 | NUR ---
PT RESTING AT BEDSIDE,A&O X3;VS OBTAINED AND ASSESSMENT COMPLETED;PT DENIES ANY CURRENT PAIN OR DISCOMFORTS,PAIN SCALE AND REPORTING EDUCATED;RESPIRATIONS EVEN AND UNLABORED ON RA, NO SOB OR COUGH NOTED;ABDOMEN SOFT ON PALPATION AND ACTIVE IN ALL 4 QUADRANTS;STRONG PEDAL PULSES;SKIN INTACT;TELE MONITORING IN PLACE;#20G TO LEFT WRIST FLUSHED AND PATENT;PT DENIES ANY ADDITIONAL NEEDS AT THIS TIME AND IS ENCOURAGED TO CALL FOR ASSISTANCE IF NEEDED;FALL PRECAUTIONS IN PLACE WITH BED IN THE LOWEST POSITION AND CALL LIGHT IN REACH;WILL CONTINUE TO MONITOR
[2020-04-17 09:21] VITALS: BP 119/82
[2020-04-17] MEDS ORDERED: DEXAMETHASON6 MG PO (10:18)
[2020-04-17 11:00] VITALS: BP 112/64
--- NOTE | 2020-04-17 11:55 | NUR ---
PT BEING ASSISTED WITH A SHOWER BY ROVERTO MARVIN;RESPIRATIONS REMAIN EVEN AND UNLABORED ON RA;PT DENIES ANY CURRENT PAIN OR DISCOMFORTS;IV SITE PATENT;PT VERBALIZES UNDERSTANDING ON PLANS TO D/C HOME;PT ENCOURAGED TO CALL FOR ASSISTANCE IF NEEDED;FALL PRECAUTIONS IN PLACE WITH BED IN THE LOWEST POSITION AND CALL LIGHT IN REACH;WILL CONTINUE TO MONITOR
--- NOTE | 2020-04-17 12:30 | NUR ---
ALL DISCHARGE INSTRUCTIONS PROVIDED AT THIS TIME, INTERPRETED BY [facility], OR UC;PT ENCOURAGED TO SELF ISOLATE FOR 14 DAYS, TAKE DEXAMETHASONE DIRECTED, F/U WITH IN 1 WEEK ( BUSSINESS CARD PROVIDED) AND RETURN TO [facility] IF INCREASED SOB, PT VERBALIZES UNDERSTANDING. RX FOR DEXAMETHASONE PROVIDED;IV SITE REMOVED WITH CATHETER INTACT AND TELE MONITORING D/C;[facility] TO BE CALLED FOR PT PER REQUEST;PT DENIES ANY ADDITIONAL QUESTIONS OR NEEDS;WHEELCHAIR TO BE PROVIDED FOR D/C HOME;WILL CONTINUE TO MONITOR
--- NOTE | 2020-04-17 13:10 | NUR ---
Discharge instructions given. Patient verbalizes understanding of same. Discharged in stable condition via Wheelchair to Home with . All belongings sent with pt. PT TRANSPORTED TO [facility] IN STABLE CONDITION FOR D/C HOME VIA WHEELCHAIR ACCOMPANIED BY ROVERTO MARVIN;[facility] TO TRANSPORT PT HOME.
== END 2020-04-17 13:10 | disposition home or self-care (01) | DRG 177 ==
LOC: ED 17:56 → ED-I 20:27 → ED 21:27 → ED-I 21:28 → MS2 22:49
PROVIDERS: Nurse Practitioner Family; ADMIT Internal Medicine; ATTEND Internal Medicine
DX: U07.1 COVID-19 (principal); J12.89 Other viral pneumonia; J96.01 Acute respiratory failure with hypoxia
CPT/HCPCS: J1650

== ENCOUNTER 2020-08-17 02:24 | Emergency (ER) | payer SELFPAY ==
[~2020-08-17] VITALS: Ht 175.3 cm; Wt 90.0 kg
[~2020-08-17 02:24] MED LIST changes: +DEXAMETHASON6 MG PO; +NO; +ULTRAM50 MG OR
[2020-08-17 02:51] LABS: HEMOGLOBIN 15.1 g/dl (14.0-18.0); IMMATURE GRANULOCYTES 0.2 % (0.0-5.0); MEAN CORPUSCULAR HGB 28.9 pG CALC (26.0-32.0); MEAN CORPUSCULAR HGB CONC 32.8 g/dL CAL (32.0-36.0); NEUT# 2.66 thou/uL (1.82-7.42); RED BLOOD COUNT 5.23 mill/uL (4.70-6.10); RED CELL DISTRI WIDTH 12.3 % (11.5-15.5)
[2020-08-17 03:01] LABS: AMYLASE 87 u/l (30-110); ANION GAP 12 (6-22 (CALC)); BILIRUBIN, TOTAL 0.8 mg/dL (0.0-1.4); BUN 20 mg/dL (9-20); BUN/CREATININE RATIO 16 (12-20 (CALC)); CARBON DIOXIDE 22 mmol/l (22-30); CHLORIDE 111 mmol/l (95-108); CREATININE 1.3 mg/dL (0.7-1.3); GFR 57 ML/MIN (>=60 (CALC)); GFR FOR AFR.AMER. > 60 ML/MIN (>=60 (CALC)); LIPASE 175 u/l (23-300); POTASSIUM 3.9 mmol/l (3.5-5.1); SGOT/AST 22 u/l (17-59); SODIUM 141 mmol/l (137-146)
[2020-08-17 03:02] LABS: ALKALINE PHOSPHATASE 61 u/l (38-126)
[2020-08-17 03:12] LABS: MYOGLOBIN 42 ng/mL (0 - 121)
[2020-08-17 05:12] LABS: URINE BILIRUBIN - DIPSTICK NEGATIVE (NEGATIVE); URINE BLOOD DIPSTICK MODERATE (NEGATIVE); URINE COLOR YELLOW; URINE GLUCOSE - DIPSTICK NEGATIVE (NEGATIVE); URINE KETONE NEGATIVE (NEGATIVE); URINE NITRITE - DIPSTICK NEGATIVE (Negative); URINE PROTEIN - DIPSTICK NEGATIVE (NEG-TRACE); URINE UROBILINOGEN - DIPSTICK 0.2 E.U./dL (0.2)
[2020-08-17 05:15] LABS: URINE LEUK ESTERASE NEGATIVE (NEGATIVE)
[2020-08-17 05:18] LABS: URINE BACTERIA FEW hpf; URINE EPITHELIAL CELLS FEW EPI/hpf (0-FEW); URINE WBC 0-2 WBC/hpf (0-5)
[2020-08-17] MEDS ORDERED: TAMSULOSIN0.4 MG PO (05:34)
[2020-08-17] MEDS ORDERED: ULTRAM50 M1 PO (05:34)
[2020-08-17 05:58] VITALS: BP 130/78
[2020-08-18] MEDS ORDERED: CIPROFLOXACN500 MG PO (10:13)
[2020-08-18] MEDS ORDERED: ULTRAM50 MG PO (10:13)
[2020-08-18] MEDS ORDERED: TAMSULOSIN0.4 MG PO (10:13)
== END 2020-08-17 05:58 | disposition home or self-care (01) | DRG 694 ==
LOC: ED 02:24
PROVIDERS: Emergency Medicine
DX: N13.2 Hydronephrosis with renal and ureteral calculous obstruction (principal); Z87.442 Personal history of urinary calculi
CPT/HCPCS: Q9967

== ENCOUNTER 2020-08-18 07:04 | Emergency (ER) | payer OTHER ==
[~2020-08-18] VITALS: Ht 182.9 cm; Wt 90.0 kg
[~2020-08-18 07:04] MED LIST changes: +TAMSULOSIN0.4 MG PO; +ULTRAM50 M1 PO
[2020-08-18 08:53] LABS: HEMATOCRIT 44.8 % (39.0-50.0); HEMOGLOBIN 14.7 g/dl (14.0-18.0); IMMATURE GRANULOCYTES 0.3 % (0.0-5.0); MEAN CELL VOLUME 86.8 fL CALC (80.0-100.0); MEAN CORPUSCULAR HGB 28.5 pG CALC (26.0-32.0); MEAN CORPUSCULAR HGB CONC 32.8 g/dL CAL (32.0-36.0); NEUT# 4.34 thou/uL (1.82-7.42); RED BLOOD COUNT 5.16 mill/uL (4.70-6.10); RED CELL DISTRI WIDTH 12.1 % (11.5-15.5)
[2020-08-18 09:04] LABS: ALBUMIN 3.9 g/dL (3.2-5.0); ALKALINE PHOSPHATASE 64 u/l (38-126); ANION GAP 9 (6-22 (CALC)); BILIRUBIN, TOTAL 0.9 mg/dL (0.0-1.4); BUN 19 mg/dL (9-20); BUN/CREATININE RATIO 13 (12-20 (CALC)); CARBON DIOXIDE 25 mmol/l (22-30); CHLORIDE 111 mmol/l (95-108); CREATININE 1.4 mg/dL (0.7-1.3); GFR 52 ML/MIN (>=60 (CALC)); GFR FOR AFR.AMER. > 60 ML/MIN (>=60 (CALC)); LIPASE 121 u/l (23-300); POTASSIUM 4.1 mmol/l (3.5-5.1); SGOT/AST 21 u/l (17-59); SODIUM 140 mmol/l (137-146); TOTAL PROTEIN 6.7 g/dL (6.3-8.2)
[2020-08-18 09:59] LABS: URINE BILIRUBIN - DIPSTICK NEGATIVE (NEGATIVE); URINE BLOOD DIPSTICK MODERATE (NEGATIVE); URINE COLOR YELLOW; URINE GLUCOSE - DIPSTICK NEGATIVE (NEGATIVE); URINE KETONE TRACE mg/dL (NEGATIVE); URINE LEUK ESTERASE NEGATIVE (NEGATIVE); URINE NITRITE - DIPSTICK NEGATIVE (Negative); URINE PROTEIN - DIPSTICK NEGATIVE (NEG-TRACE); URINE SPECIFIC GRAVITY >=1.030; URINE UROBILINOGEN - DIPSTICK 0.2 E.U./dL (0.2)
[2020-08-18 10:02] LABS: URINE EPITHELIAL CELLS FEW EPI/hpf (0-FEW); URINE MUCUS FEW hpf (NONE-FEW)
[2020-08-18] MEDS ORDERED: TAMSULOSIN0.4 MG PO (10:13)
[2020-08-18] MEDS ORDERED: ULTRAM50 MG PO (10:13)
[2020-08-18] MEDS ORDERED: CIPROFLOXACN500 MG PO (10:13)
[2020-08-18 10:34] VITALS: BP 106/73
== END 2020-08-18 10:35 | disposition home or self-care (01) | DRG 694 ==
LOC: ED 07:04
DX: N20.1 Calculus of ureter (principal); T40.426A Underdosing of tramadol, initial encounter; T44.6X6A Underdosing of alpha-adrenoreceptor antagonists, initial encounter; Z91.128 Patient's intentional underdosing of medication regimen for other reason

== ENCOUNTER 2022-08-26 14:04 | Emergency (ER) | payer OTHER ==
[~2022-08-26] VITALS: Ht 182.9 cm; Wt 91.0 kg
[~2022-08-26 14:04] MED LIST changes: +CIPROFLOXACN500 MG PO; +ULTRAM50 MG PO
[2022-08-26 14:33] VITALS: BP 163/97
[2022-08-26 14:45] VITALS: BP 150/95
[2022-08-26] MEDS ORDERED: TRAMADOL HYDROC50 M1 PO (14:59)
[2022-08-26] MEDS ORDERED: CLEOCIN300 MG PO (14:59)
[2022-08-26 15:08] VITALS: BP 150/95
== END 2022-08-26 15:27 | disposition home or self-care (01) | DRG 159 ==
LOC: ED 14:04
DX: K08.89 Other specified disorders of teeth and supporting structures (principal)